=== PATIENT | male | born 2000 | race Caucasian/White ===

== ENCOUNTER 2022-10-20 20:09 | Emergency (ER) | payer SELFPAY ==
[2022-10-20] MEDS ORDERED: Albuterol 90 MCG/6.7 GM Inhaler INH STA (20:56)
[2022-10-20 21:19] LABS: CORONAVIRUS COVID-19 NAA NEGATIVE (NEGATIVE)
== END 2022-10-20 22:42 | disposition home or self-care (01) ==
LOC: JP.ED 20:09
DX: J10.1 Influenza due to other identified influenza virus with other respiratory manifestations (principal); Z20.822 Contact with and (suspected) exposure to COVID-19
CPT/HCPCS: 0241U; 94640; 99283; A9270

== ENCOUNTER 2023-10-23 15:39 | Emergency (ER) | payer SELFPAY | END 2023-10-23 16:40 | disposition home or self-care (01) | LOC: JP.ED 15:39 | DX: S76.912A Strain of unspecified muscles, fascia and tendons at thigh level, left thigh, initial encounter (principal); X58.XXXA Exposure to other specified factors, initial encounter | CPT/HCPCS: 99283 ==